=== PATIENT | male | born 1960 | race Caucasian/White ===

== ENCOUNTER 2019-01-27 15:54 | Inpatient (IN) | payer OTHER ==
[~2019-01-27] VITALS: Ht 172.7 cm; Wt 72.2 kg
[~2019-01-27 15:54] MED LIST: METHIMAZOLE 5 MG TAB PO ONE
--- NOTE | 2019-01-27 16:23 | NUR ---
PT PRESENTS WITH COMPAINTS OF A FAST HR THAT HAS BEEN INTERMITTANT FOR 3-4 DAYS. DOUBLE VISION THAT STARTED TODAY. AT BEDSIDE. ALL MONITORS APPLIED. 113 HR ON MONITOR.
[2019-01-27] MEDS ORDERED: AMLO-150 PO (16:28)
[2019-01-27] MEDS ORDERED: LISI-170 PO (16:28)
[2019-01-27] MEDS ORDERED: ROSU5TAB PO (16:28)
[2019-01-27] MEDS ORDERED: MELO15TA24 PO (16:28)
[2019-01-27] MEDS ORDERED: SODIUM CHLORIDE FLUSH 10ML SYR IVF ONE (17:00)
[2019-01-27] MEDS ORDERED: SODIUM CHLORIDE 0.9% 1,000ML IVBOLUS ONE (17:00)
[2019-01-27 17:07] LABS: BASOPHILS # (AUTO) 0.02 x10^3/uL (0-0.1); BASOPHILS % (AUTO) 0 % (0-1); EOSINOPHILS # (AUTO) 0.08 x10^3/uL (0-0.4); EOSINOPHILS % (AUTO) 1 % (1-7); LYMPHOCYTES # (AUTO) 1.32 x10^3/uL (1-3.4); LYMPHOCYTES % (AUTO) 17 % (22-44); MD NO; MEAN CORPUSCULAR HEMOGLOBIN 29.7 pg (27.5-34.5); MEAN CORPUSCULAR HGB CONC 32.9 g/dL (33.2-36.2); MEAN CORPUSCULAR VOLUME 90.5 fL (81-97); MEAN PLATELET VOLUME 10.2 fL (7.4-10.4); MONOCYTES # (AUTO) 0.61 x10^3/uL (0.2-0.8); MONOCYTES % (AUTO) 8 % (2-9); NEUTROPHILS % (AUTO) 74 % (42-75); PLATELET COUNT 159 x10^3/uL (130-400); RED BLOOD COUNT 4.05 x10^6/uL (4.38-5.82); RED CELL DISTRIBUTION WIDTH 13.2 % (9.4-14.8)
[2019-01-27 17:09] LABS: ALBUMIN 3.7 g/dL (3.4-5.0); ANION GAP 9 mmol/L (5-15); CALCIUM 8.9 mg/dL (8.5-10.1); CHLORIDE 110 mmol/L (98-107)
[2019-01-27 17:21] LABS: ALANINE AMINOTRANSFERASE 41 U/L (12-78); ALKALINE PHOSPHATASE 90 U/L (45-117); BILIRUBIN,TOTAL 0.7 mg/dL (0.2-1.0); CREATININE 0.91 mg/dL (0.7-1.3); FREE T4 (FREE THYROXINE) 3.51 ng/dL (0.76-1.46); TOTAL PROTEIN 7.3 g/dL (6.4-8.2)
--- NOTE | 2019-01-27 18:58 | NUR ---
MEDICATION REQUEST PAPER TUBED TO PHARMACY
[2019-01-27] MEDS ORDERED: PROPRANOLOL 60 MG TABLET PO ONE (19:00)
[2019-01-27] MEDS ORDERED: METHIMAZOLE 5 MG TAB PO ONE (19:00)
--- NOTE | 2019-01-27 19:06 | NUR ---
REPORT TO KATI ALFONSO
--- NOTE | 2019-01-27 19:07 | NUR ---
REPORT RECEIVED FROM NITZA ALFONSO.
--- NOTE | 2019-01-27 19:22 | NUR ---
PT MEDICATED PER EMAR. PT TOLERATED WELL.
--- NOTE | 2019-01-27 19:27 | NUR ---
REPORT GIVEN TO JAVON ALFONSO. ALL QUESTIONS ANSWERED.
[2019-01-27] MEDS ORDERED: DIPHENHYDRAMINE 25 MG CAPSULE PO PRN (19:30)
[2019-01-27] MEDS ORDERED: ENOXAPARIN 40 MG/0.4 ML SQ SCH (19:30)
[2019-01-27] MEDS ORDERED: ACETAMINOPHEN 325 MG TABLET PO PRN (19:30)
[2019-01-27 19:57] LABS: HEMOGLOBIN A1C 5.6 % (4.2-6.3)
[2019-01-27 20:01] VITALS: BP_SYST 119; BP_SYST 122; BP_SYST 124; BP_DIAS 79; BP_DIAS 83
[2019-01-27] MEDS ORDERED: ATORVASTATIN 20 MG TABLET PO SCH (21:00)
[2019-01-27] MEDS: PROPRANOLOL 20 MG TABLET PO SCH (21:19)
[2019-01-27] MEDS: SODIUM CHLORIDE FLUSH 10ML SYR IVF SCH (21:19)
[2019-01-28 01:37] VITALS: BP 115/73
[2019-01-28 04:20] LABS: ALANINE AMINOTRANSFERASE 35 U/L (12-78); ALBUMIN 3.2 g/dL (3.4-5.0); ANION GAP 9 mmol/L (5-15); CALCIUM 8.8 mg/dL (8.5-10.1); CHLORIDE 111 mmol/L (98-107); CREATININE 0.81 mg/dL (0.7-1.3)
[2019-01-28 04:21] LABS: BASOPHILS # (AUTO) 0.01 x10^3/uL (0-0.1); BASOPHILS % (AUTO) 0 % (0-1); EOSINOPHILS # (AUTO) 0.13 x10^3/uL (0-0.4); EOSINOPHILS % (AUTO) 3 % (1-7); LYMPHOCYTES # (AUTO) 1.82 x10^3/uL (1-3.4); LYMPHOCYTES % (AUTO) 40 % (22-44); MD NO; MEAN CORPUSCULAR HEMOGLOBIN 30.3 pg (27.5-34.5); MEAN CORPUSCULAR HGB CONC 33.7 g/dL (33.2-36.2); MEAN CORPUSCULAR VOLUME 89.8 fL (81-97); MONOCYTES # (AUTO) 0.56 x10^3/uL (0.2-0.8); MONOCYTES % (AUTO) 12 % (2-9); NEUTROPHILS # (AUTO) 2.02 x10^3/uL (1.8-6.8); NEUTROPHILS % (AUTO) 45 % (42-75); PLATELET COUNT 133 x10^3/uL (130-400); RED BLOOD COUNT 3.68 x10^6/uL (4.38-5.82); RED CELL DISTRIBUTION WIDTH 13.6 % (9.4-14.8)
[2019-01-28 04:24] LABS: ALKALINE PHOSPHATASE 81 U/L (45-117); BILIRUBIN,TOTAL 0.4 mg/dL (0.2-1.0); CHOL/HDL RATIO 3.3; CHOLESTEROL, TOTAL 115 mg/dL (140-239); HDL CHOL % 30 % (26-37); HDL CHOLESTEROL (DIRECT) 35 mg/dL (40-60); LDL CHOLESTEROL,CALCULATED 62 mg/dL (54-169); LDL/HDL RATIO 1.8 (0.5-3.0); TOTAL PROTEIN 6.5 g/dL (6.4-8.2); TRIGLYCERIDES 90 mg/dL (50-200); VLDL CHOLESTEROL 18 mg/dL (0-25)
[2019-01-28 07:37] VITALS: BP 121/78
[2019-01-28] MEDS ORDERED: METHIMAZOLE 5 MG TAB PO SCH (09:00)
[2019-01-28] MEDS: PROPRANOLOL 20 MG TABLET PO SCH (09:39)
[2019-01-28] MEDS: SODIUM CHLORIDE FLUSH 10ML SYR IVF SCH (09:41)
[2019-01-28 13:45] VITALS: BP 127/76
[2019-01-28] MEDS ORDERED: METH5TAB6 PO (14:37)
[2019-01-28] MEDS ORDERED: PROP20TA PO (14:37)
== END 2019-01-28 15:54 | disposition home or self-care (01) | DRG 645 ==
LOC: ED 17:40 → EDIP 19:36 → 4WST 19:47 → DCLOUNGE 01-28 15:30
PROVIDERS: ADMIT Internal Medicine; ATTEND Internal Medicine
DX: E05.00 Thyrotoxicosis with diffuse goiter without thyrotoxic crisis or storm (principal); H53.8 Other visual disturbances; R73.01 Impaired fasting glucose; E78.00 Pure hypercholesterolemia, unspecified; E78.5 Hyperlipidemia, unspecified; R00.0 Tachycardia, unspecified; I10 Essential (primary) hypertension; I49.9 Cardiac arrhythmia, unspecified; Z82.49 Family history of ischemic heart disease and other diseases of the circulatory system; Z83.3 Family history of diabetes mellitus
CPT/HCPCS: 36415; 71045; 80053; 80061; 83036; 83735; 83880; 84100; 84439; 84443; 84481; 85025; 86376; 86800; 93005; 96360; G0378; J1650; J7030

== ENCOUNTER 2019-02-23 09:04 | Outpatient (CLI) | payer OTHER ==
[~2019-02-23 09:04] MED LIST changes: +AMLO-150 PO; +LISI-170 PO; +MELO15TA24 PO; +METH5TAB6 PO; -METHIMAZOLE 5 MG TAB PO ONE; +PROP20TA PO; +ROSU5TAB PO
== END 2019-02-23 23:59 | disposition home or self-care (01) ==
LOC: PETCFH 09:04
PROVIDERS: ATTEND Internal Medicine Infectious Disease
DX: E05.00 Thyrotoxicosis with diffuse goiter without thyrotoxic crisis or storm (principal)
CPT/HCPCS: 78013; A9516

== ENCOUNTER → 2019-05-23 | Outpatient (CLI) | payer OTHER ==
[2019-05-23 13:14] LABS: FREE T4 (FREE THYROXINE) 0.59 ng/dL (0.76-1.46)
== END | disposition home or self-care (01) ==
LOC: CFH 09:51
PROVIDERS: ATTEND Nurse Practitioner
DX: E05.00 Thyrotoxicosis with diffuse goiter without thyrotoxic crisis or storm (principal); E05.90 Thyrotoxicosis, unspecified without thyrotoxic crisis or storm; Z80.8 Family history of malignant neoplasm of other organs or systems; Z83.3 Family history of diabetes mellitus; Z84.89 Family history of other specified conditions; Z80.9 Family history of malignant neoplasm, unspecified
CPT/HCPCS: 36415; 84439; 84443; 84480